=== PATIENT | female | born 1990 | race Caucasian/White ===

== ENCOUNTER 2022-07-23 13:55 | Inpatient (IN) | payer SELFPAY ==
[2022-07-23 13:55] VITALS: BP 157/105; PULSE 79; RESP 16; TEMP 36.3; O2SAT 99; BMI 27.4
--- NOTE | 2022-07-23 14:23 | ED.RN ---
contract for med detox program went over with pt and signed and agreeable to everything and no questions voiced. ua and labs completed. last drink was tall boy this am at 0900.
[2022-07-23 14:36] VITALS: BP 132/97; PULSE 72; RESP 23; TEMP 36.7; O2SAT 100
--- NOTE | 2022-07-23 14:58 | EDS_ITS ---
HPI History of Present Illness Chief Complaint: Substance Abuse Informant: patient Onset/Context/Timing Onset: Today Context: Gradual Onset Timing: Continuous Quality: Shaky Location: Generalized Worsened by: Nothing Relieved by: Nothing Associated Symptoms Associated Symptoms: Positive for tremor, palpatations and no; Negative for vomiting*, diarrhea*, fever*, rash*, seizure, change in mental status, suicidal ideation or homicidal ideation Narrative Narrative: Patient presents requesting detox from alcohol and benzodiazepines. Patient states that she normally drinks 1/5 of liquor per day. Patient states that she has been drinking 1-2 beers over the past few days instead of the liquor. Patient states that her doctor had prescribed her Ativan to help through withdrawals. Patient states she ran out of the Ativan and has not had any in the last few days. Patient states she also feels like she is going through benzodiazepine withdrawal. Patient admits to some tremors and heart palpitations. Patient denies any chance of . Patient denies any suicidal homicidal ideations. PFSH PFSH Medical History Anemia ETOH abuse Home Medications lorazepam 1 mg tablet (Ativan) 1 mg PO TID PRN Anxiety 07/23/22 [History Last Taken Unknown] Allergy/AdvReac Type Severity Reaction Status Date / Time codeine Allergy Hives Verified 07/23/22 13:58 duloxetine [From Cymbalta] Allergy Hives Verified 07/23/22 13:58 Penicillins Allergy Hives Verified 07/23/22 13:58 Sulfa (Sulfonamide Allergy Hives Verified 07/23/22 13:58 Antibiotics) Surgical History (Updated 07/23/22 @ 15:[address] Ton Moore DO) Hx of laparoscopy Hx of tubal ligation Social History Smoking Status: Current every day smoker tobacco type: cigarettes ROS ROS ED Constitutional Constitutional ED: Denies chills or fever(s) Eyes Eyes: Denies blurry vision or change in vision ENT ENT ED: Reports rhinorrhea; Denies sore throat Cardiovascular Cardiovascular: Denies chest pain or palpitations Respiratory/Chest Respiratory/Chest: Reports dyspnea; Denies cough Gastrointestinal Gastrointestinal: Reports nausea; Denies vomiting Genitourinary Genitourinary ED: Denies dysuria or hematuria Musculoskeletal Musculoskeletal: Denies back pain or neck pain Integumentary Denies abscess or rash Neurologic Neurologic: Reports headache(s); Denies weakness Allergic/Immunologic Allergic/Immunologic ED: Denies mouth swelling or urticaria EXAM Physical Exam Const Vital Signs: 07/23/22 13:55 07/23/22 14:36 Temperature 97.4 F L 98.1 F Temperature Source Temporal Oral Pulse Rate 79 72 Respiratory Rate 16 23 H Blood Pressure 157/105 H 132/97 H Blood Pressure Mean 122 108 Blood Pressure Source Monitor Blood Pressure Position Semi-Fowlers Blood Pressure Location Right Arm Pulse Ox 99 100 Oxygen Delivery Method Room Air Room Air Positive well nourished and well developed General Appearance ED: well developed HEENT Reports moist mucous membranes Neck supple and no JVD Resp normal respiratory effort and clear to auscultation bilaterally Cardio regular rate, regular rhythm and no murmurs GI normal to inspection, nondistended, normoactive bowel sounds and non-tender Palpation: soft Extremity normal to inspection General Extremety ED: Negative for edema or tenderness General Extremity: Negative for edema Neuro oriented x3, CN's II-XII intact bilaterally and no sensory deficits noted Sensorium / Orientation: alert Motor Exam: strength 5/5 throughout Psych mental status grossly normal Skin no rashes or lesions noted MDM MDM MDM Narrative Medical decision making narrative: Hep-Lock IV was established. Basic labs were obtained and are pending. Case was discussed with the hospitalist. He will admit the patient to his service. Patient understood and was agreeable with the plan. All questions were answered. Lab Data Labs: Laboratory Results - last 24 hr 07/23/22 14:25 WBC 3.0 L RBC 4.93 Hgb 13.7 Hct 41.1 MCV 83.4 MCH 27.8 MCHC 33.3 RDW Std Deviation 47.3 H RDW Coeff of Yamilet 16.6 H Plt Count 160 MPV 9.5 Immature Gran % (Auto) 0.700 Neut % (Auto) 22.4 L Lymph % (Auto) 63.5 H [place] % (Auto) 12.8 H Eos % (Auto) 0.3 Baso % (Auto) 0.3 Absolute Neuts (auto) 0.7 L Absolute Lymphs (auto) 1.88 Nucleated RBC % 0 Discharge Plan Dx/Rx/DC Orders Clinical Impression: Alcohol withdrawal, Benzodiazepine withdrawal Disposition Disposition: [facility]
[2022-07-23 15:22] LABS: Absolute Lymphocyte Count 1.88 X10^3/uL (0.83-4.51); Absolute Neutrophil Count 0.7 X10^3/uL (2.0-7.7); Basophil# 0.01 X10^3/uL; Basophil% 0.3 % (0-1); Eosinophil# 0.01 X10^3/uL; Eosinophils% 0.3 % (0-5); Hematocrit 41.1 % (37-47); Hemoglobin 13.7 g/dL (12.0-15.0); Lymphocyte # 1.88 X10^3/ul (0.83-4.51); Lymphocyte % 63.5 % (19-41); Mean Corp Hgb Conc 33.3 g/dL (32-36); Mean Corpuscular Hgb 27.8 pg (27.0-32.0); Mean Corpuscular Volume 83.4 fL (81-99); Mean Platelet Vol. 9.5 fl (6.2-12.0); Monocyte# 0.38 X10^3/uL; Monocyte% 12.8 % (0-10); NRBC Flagged by Analyzer 0 % (0-5); Neutrophil # 0.66 X10^3/uL (2.7-7.7); Neutrophil % 22.4 % (47-70); POSITIVE DIFFERENTIAL YES; Platelet Count 160 K/mm3 (150-450); RBC Distribution Width CV 16.6 % (11.6-14.6); RBC Distribution Width SD 47.3 fl (35.1-43.9); Red Blood Count 4.93 M/mm3 (4.2-5.4)
[2022-07-23 15:35] LABS: Differential Indicated SCAN CRITERIA MET
[2022-07-23 15:37] VITALS: BP 132/97; PULSE 72; RESP 23; TEMP 36.7; O2SAT 100
[2022-07-23 15:40] LABS: Internal QC Validated? YES +Cl - CLEAR BKGD; Pregnancy, Serum, hCG Quali. NEGATIVE Negative
[2022-07-23 15:45] LABS: ALB/GLOB Ratio 1.1 RATIO (0.9-2.4); AST(SGOT) 17 U/L (15-37); Alanine Aminotransfer ALT/SGPT 36 U/L (13-56); Albumin, Serum 3.3 g/dL (3.2-5.0); Alkaline Phosphatase 62 U/L (45-117); Anion Gap 7 (5-15); BUN 6 mg/dL (7-18); BUN/Creat Ratio 8.8 RATIO (10-20); Calcium,Total 8.6 mg/dL (8.5-10.1); Chloride 107 mmol/L (98-107); Creatinine, Serum 0.68 mg/dL (0.55-1.02); EST Glomerular Filtration Rate 105 mL/min (>60); Est Glom Filt Rate - Afr Amer 127 mL/min (>60); Estimated Creatinine Clearance 98.25 ml/min; Globulin 3.1 g/dL (2.2-4.2); Glucose 86 mg/dL (74-106); Lipase 80 U/L (73-393); Protein, Total 6.4 g/dL (6.4-8.2); Sodium Level 142 mmol/L (136-145)
[2022-07-23 15:50] LABS: Anisocytosis RARE; Platelet Estimate ADEQUATE (ADEQ); Red Cell Morphology N CHROM NORMAL (NORM C&C)
--- NOTE | 2022-07-23 15:55 | HP.PCM.HOS_ITS ---
HPI - General General Date of Service: 07/23/22 Chief Complaint: Alcohol and benzodiazepine withdrawal HPI Narrative BETH MACEDO, is a 31 F who presents seeking treatment for alcohol benzodiazepine withdrawal. Patient was drinking 1/5 of bourbon daily and until about a week ago. Then over this past week, she is only had 2 drinks of alcohol, last being this morning. She is also been receiving benzodiazepines. Patient has been taking benzodiazepines 3 times a day and did recently have a prescription filled to help her with her alcohol withdrawal. Patient ran out of her lorazepam today and feels tremulous and anxious. Similar to when she has been through withdrawal before. [facility] Medical History Anemia ETOH abuse Home Medications lorazepam 1 mg tablet (Ativan) 1 mg PO TID PRN Anxiety 07/23/22 [History Last Taken Unknown] Allergy/AdvReac Type Severity Reaction Status Date / Time codeine Allergy Hives Verified 07/23/22 13:58 duloxetine [From Cymbalta] Allergy Hives Verified 07/23/22 13:58 Penicillins Allergy Hives Verified 07/23/22 13:58 Sulfa (Sulfonamide Allergy Hives Verified 07/23/22 13:58 Antibiotics) Family History (Updated 07/23/22 @ 15:[address] Ton Welch DO) Other Addiction Surgical History Hx of laparoscopy Hx of tubal ligation Social History (Updated 07/23/22 @ 15:[address] Ton Welch DO) Smoking Status: Current every day smoker tobacco type: cigarettes alcohol intake: current alcohol intake frequency: 3 or more drinks per day substance use type: does not use ROS ROS Narrative All review of systems were negative except as mentioned above in the history of present illness and the other review of systems. Vital Signs Vital Signs Vital Signs: 07/23/22 13:55 07/23/22 14:36 07/23/22 15:37 Temperature 36.3 C L 36.7 C 36.7 C Temperature Source Temporal Oral Oral Pulse Rate 79 72 72 Respiratory Rate 16 23 H 23 H Blood Pressure 157/105 H 132/97 H 132/97 H Blood Pressure Mean 122 108 108 Blood Pressure Source Monitor Blood Pressure Position Semi-Fowlers Blood Pressure Location Right Arm Pulse Ox 99 100 100 Oxygen Delivery Method Room Air Room Air Room Air Weight Weight: 70.307 kg Body Mass Index (BMI) 27.4 Physical Exam Const alert and no apparent distress General Appearance: cooperative Resp normal respiratory effort, no retractions, no use of accessory muscles and clear to auscultation bilaterally Cardio regular rate, regular rhythm, S1 normal heart sound and S2 normal heart sound GI normal to inspection, nondistended, normoactive bowel sounds, soft to palpation, non-tender and non-distended Extremity normal to inspection Results Lab / Micro Data Result Diagrams: 07/23/22 14:25 07/23/22 14:25 Labs: Laboratory Results - last 24 hr 07/23/22 14:25: WBC 3.0 L, RBC 4.93, Hgb 13.7, Hct 41.1, MCV 83.4, MCH 27.8, MCHC 33.3, RDW Std Deviation 47.3 H, RDW Coeff of Yamilet 16.6 H, Plt Count 160, MPV 9.5, Immature Gran % (Auto) 0.700, Neut % (Auto) 22.4 L, Lymph % (Auto) 63.5 H, [place] % (Auto) 12.8 H, Eos % (Auto) 0.3, Baso % (Auto) 0.3, Absolute Neuts (auto) 0.7 L, Absolute Lymphs (auto) 1.88, Nucleated RBC % 0, Differential Comment SEE COMMENT, Platelet Estimate ADEQUATE, RBC Morphology N CHROM, Anisocytosis RARE 07/23/22 14:25: Sodium 142, Potassium 3.0 L, Chloride 107, Carbon Dioxide 28.0, Anion Gap 7, BUN 6 L, Creatinine 0.68, Estim Creat Clear Calc 98.25, Est GFR (MDRD) Af Amer 127, Est GFR (MDRD) Non-Af 105, BUN/Creatinine Ratio 8.8 L, Glucose 86, Calcium 8.6, Total Bilirubin 0.20, AST 17, ALT 36, Alkaline Phosphatase 62, Total Protein 6.4, Albumin 3.3, Globulin 3.1, Albumin/Globulin Ratio 1.1, Lipase 80 07/23/22 14:25: Ethyl Alcohol 39.0 07/23/22 14:25: Serum , Qual NEGATIVE Assessment & Plan Assessment/Plan (1) Benzodiazepine withdrawal: PLAN: Patient is not taking benzodiazepines for a long period of time. I reviewed her OARRS and she received lorazepam on the fifth and ninth of this month. She has run out. She was taking it before. Patient has only had 2 drinks of alcohol over the past week so do not feel that she is going through acute alcohol withdrawal at this time. We will treat her with a lorazepam taper. Patient may require gabapentin upon discharge to help her with her continued benzodiazepine withdrawal. (2) Alcohol withdrawal: PLAN: Less likely an issue though her symptoms may have been medicated by the benzodiazepines that she was taking. She has had a couple drinks during this time so this has not been completely ruled out but seems less likely compared to the benzodiazepine withdrawal. PLAN: Plan Chronic conditions: * Anemia. Hemoglobin stable at 13.7. VTE prophylaxis: Low risk and not indicated. Charges/Coding Visit Charges Inpatient E&M: 83909 Init Hosp L2
--- NOTE | 2022-07-23 16:08 | CM.ED ---
NEMESIO Note Referral Source: Case Find Referral Reason: DARIUS HERR met with patient. She is in the ED for detox from benzo, prescribed Ativan, and alcohol. Patient reports that has cut back alot this week and only had 2/3 drinks this week but previously was drinking a 1/5th . Patient said that she is aware of the rules and signed the contract for the detox program. Patient voiced no concerns or issues regarding ramp program. NEMESIO called Kevin, addiction therapist, and left voice mail for her regarding patient's admission to the [facility] program. Plan: DARIUS LANCASTER
[2022-07-23 17:00] VITALS: BP 131/78; PULSE 66; RESP 16; TEMP 36.7; O2SAT 98
[2022-07-23 17:05] VITALS: BMI 26.5
[2022-07-23 17:14] VITALS: BP 131/78; PULSE 66; RESP 18; TEMP 36.6; O2SAT 98
[2022-07-23] MEDS: LORazepam 1 MG Tablet 2 MG PO ×2 (17:24→21:58)
[2022-07-23 19:38] VITALS: BP 125/88; PULSE 71; RESP 18; TEMP 36.6; O2SAT 99
[2022-07-24] VITALS (7 sets, daily range): BP systolic 117–155; BP diastolic 76–106; PULSE 62–84; RESP 15–18; TEMP 36.3–37.4; O2SAT 97–100
[2022-07-24] MEDS: LORazepam 1 MG Tablet 2 MG PO ×3 (00:46→09:24)
[2022-07-24 00:59] LABS: Mucous, Urine 0 SEEN /hpf (<or=2+); Red Blood Cells-Urine 0 SEEN /hpf (0-5); White Blood Cells 0 SEEN /hpf (0-5)
[2022-07-24 01:00] LABS: Color, Urine Yellow (Yellow); Glucose, Dipstick Normal (Normal); Ketone-Dipstick Negative (Negative); Leukocyte Esterase-Dipstick Negative /ul (Negative); Nitrite-Dipstick Negative (Negative); Occult Blood-Urine Negative /ul (Negative); Protein-Dipstick Negative (Negative); Urine Bilirubin Dipstick Negative (Negative); Urine Clarity Clear (Clear); Urine Urobilinogen Normal (Normal)
[2022-07-24 01:10] LABS: Bacteria RARE /hpf (None Seen); Squamous Epithelial Cells - UA 0-5 SEEN /hpf (5-10)
[2022-07-24 01:11] LABS: Amphetamine Urine VISTA NEGATIVE (<1000 ng/mL); Barbiturate Urine VISTA POSITIVE (< 200 ng/mL); Benzodiazepine Urine VISTA NEGATIVE (< 200 ng/mL); Cocaine Urine VISTA NEGATIVE (< 300 ng/mL); Ecstacy Urine VISTA NEGATIVE (< 500 ng/mL); Methadone Urine VISTA NEGATIVE (< 300 ng/mL); PCP Urine VISTA NEGATIVE (< 25 ng/mL); THC Urine VISTA NEGATIVE (< 50 ng/mL); Vista UDS pH Range 7
[2022-07-24] MEDS: Thiamine Hydrochloride 100 MG Tablet PO (09:24)
[2022-07-24] MEDS: Folic Acid 1 MG Tablet PO (09:24)
--- NOTE | 2022-07-24 13:54 | PN.HOSP_ITS ---
Subjective Subjective Patient was seen and examined today, I talked extensively with addiction social media specialist, it appears that the patient has been getting prescriptions for Ativan to help her with alcohol cessation, patient states that this examiner that she does not drink on a daily basis now, she was told to come here by her counseling center for evaluation for admission. Patient is homeless, she does not have anybody to live with presently, a COVID-19 antigen test was performed because it was recommended by addiction social media specialist because the patient had severe cough, the COVID-19 antigen test was positive. It appears therefore that the patient cannot be placed in a homeless senior care or any type of a detox program. Patient is not requiring any oxygen, she does not need treatment for COVID. I have decided at this time to take the patient off her Ativan taper and place her on Ativan 1 mg 3 times daily, she is not a candidate for the ramp program presently. It appears that the patient will be here for a few days until arrangements can be made for her to go to a living facility. Objective Data Objective Data Vital Signs: Vital Signs Temp Pulse Resp BP Pulse Ox O2 Del Method 99.3 F H 84 16 117/80 99 Room Air 07/24/22 09:21 07/24/22 09:21 07/24/22 09:21 07/24/22 09:21 07/24/22 09:21 07/24/22 09:21 Oxygen Delivery Method Room Air Weight: 68.039 kg Body Mass Index (BMI) 26.5 Intake & Output: Intake and Output for Last 24 Hours 07/22/22 07/23/22 07/24/22 23:59 23:59 23:59 Intake Total 800 / 800 Balance 800 / 800 Lab / Micro Data Result Diagrams: 07/23/22 14:25 07/23/22 14:25 Labs: Laboratory Results - last 24 hr 07/23/22 14:25: WBC 3.0 L, RBC 4.93, Hgb 13.7, Hct 41.1, MCV 83.4, MCH 27.8, MCHC 33.3, RDW Std Deviation 47.3 H, RDW Coeff of Yamilet 16.6 H, Plt Count 160, MPV 9.5, Immature Gran % (Auto) 0.700, Neut % (Auto) 22.4 L, Lymph % (Auto) 63.5 H, [place] % (Auto) 12.8 H, Eos % (Auto) 0.3, Baso % (Auto) 0.3, Absolute Neuts (auto) 0.7 L, Absolute Lymphs (auto) 1.88, Nucleated RBC % 0, Differential Comment SEE COMMENT, Platelet Estimate ADEQUATE, RBC Morphology N CHROM, Anisocytosis RARE 07/23/22 14:25: Sodium 142, Potassium 3.0 L, Chloride 107, Carbon Dioxide 28.0, Anion Gap 7, BUN 6 L, Creatinine 0.68, Estim Creat Clear Calc 98.25, Est GFR (MDRD) Af Amer 127, Est GFR (MDRD) Non-Af 105, BUN/Creatinine Ratio 8.8 L, Glucose 86, Calcium 8.6, Total Bilirubin 0.20, AST 17, ALT 36, Alkaline Phosphatase 62, Total Protein 6.4, Albumin 3.3, Globulin 3.1, Albumin/Globulin Ratio 1.1, Lipase 80 07/23/22 14:25: Ethyl Alcohol 39.0 07/23/22 14:25: Serum , Qual NEGATIVE 07/24/22 00:50: Urine Color Yellow, Urine Clarity Clear, Urine pH 7.0, Ur Specific [place] 1.010, Urine Protein Negative, Urine Glucose (UA) Normal, Urine Ketones Negative, Urine Occult Blood Negative, Urine Nitrite Negative, Urine Bilirubin Negative, Urine Urobilinogen Normal, Ur Leukocyte Esterase Negative, Urine RBC 0 SEEN, Urine WBC 0 SEEN, Ur Squamous Epith Cells 0-5 SEEN, Urine Bacteria RARE, Urine Mucus 0 SEEN 07/24/22 00:50: Urine Opiates Screen NEGATIVE, Urine Methadone Screen NEGATIVE, Ur Barbiturates Screen POSITIVE H, Ur Phencyclidine Scrn NEGATIVE, Ur Amphetamines Screen NEGATIVE, MDMA (Ecstasy) Screen NEGATIVE, U Benzodiazepines Scrn NEGATIVE, Urine Cocaine Screen NEGATIVE, U Cannabinoids Screen NEGATIVE, Ur Drug Screen Comment Micro: Microbiology 07/24/22 11:45 Nasal Secretion SARS-CoV-2 Antigen (Rapid) - Final SARS-CoV-2 (COVID 19) Physical Exam Const alert, oriented x3, no apparent distress and healthy appearing General Appearance: cooperative, well kempt and well developed Orientation / Consciousness: awake, oriented to person, oriented to place and oriented to time HEENT normocephalic and moist oral mucous membranes Eyes PERRL, EOMs intact bilaterally and conjunctivae normal Neck supple, no JVD, thyroid normal and no carotid bruits General: trachea midline Resp normal respiratory effort, no retractions and no use of accessory muscles Auscultation: rhonchi throughout; Negative for rales or wheezes Cardio regular rate, regular rhythm, S1 normal heart sound, S2 normal heart sound, no murmurs, no rub and no gallops GI normal to inspection, nondistended, normoactive bowel sounds, soft to palpation, non-tender and non-distended Extremity no clubbing, cyanosis or edema Skin no rashes or lesions noted General Skin Exam: no breakdown Neuro oriented x3, CN's II-XII intact bilaterally, no focal motor deficits and no sensory deficits noted Sensorium / Orientation: awake, alert, oriented to person, oriented to place and oriented to time Speech: speech normal Psych affect normal Assessment & Plan Assessment/Plan (1) Substance abuse: (2) Unsheltered homelessness: PLAN: Plan 1. Substance abuse-chronic in nature, patient does not want to go into an inpatient detox program at this time, patient is not actively undergoing alcohol withdrawal at the present time, according to her OARRS report, she has been intermittently receiving prescriptions for benzodiazepines over the last few weeks. I have elected to keep her on Ativan 1 mg 3 times daily for now. #2 COVID-19 infection-due to the patient's expiratory rhonchi, I decided to place her on a Proventil inhaler,'s patient smokes 1 and half packs of cigarettes per day. #3 unsheltered homelessness-this creates a problem for the patient, getting her into a homeless senior care will be unlikely due to her COVID-19 positivity. She will need quarantine for 5 days unless she becomes hypoxic. Charges/Coding Visit Charges Inpatient E&M: 03531 Subs Hosp L2
--- NOTE | 2022-07-24 15:13 | CASEMGMT ---
Social Work Pt came in to be part of [facility], however does not qualify for the program. As per Helen with [facility], pt was kicked out of her current living situation. Pt told Helen she had another place to stay however. Dr. Champion then went in to see pt who told him she does not have any place else to stay. Pt also has now tested positive for COVID. SW called [facility] in [place], they do not take people on the weekends. SW called [facility]([phone]), they are full. SW called [facility]([phone]), got a voicemail that they do not answer the phone after 2pm. SW called [facility]([phone]), the number does not work. SW called [facility] in [place]([phone]), it went to voicemail stating that they will be back on Tuesday. SW will follow up if needed if pt still needs a place to stay Tuesday. ADALGISA Dejesus
[2022-07-24] MEDS: Potassium Chloride Oral Tablet 20 MEQ 40 MEQ PO (15:22)
[2022-07-24] MEDS: LORazepam 1 MG Tablet PO ×2 (15:22→22:00)
[2022-07-24] MEDS: hydrOXYzine PAM 25 MG Capsule 50 MG PO (19:38)
[2022-07-24] MEDS: traZODone 100 MG Tablet PO (19:38)
[2022-07-24] MEDS: Albuterol 2.5 MG/3 ML VIAL.NEB. INHALATION (19:39)
[2022-07-24] MEDS: Ibuprofen 600 MG Tablet PO (19:45)
[2022-07-24] MEDS: Ondansetron 8 MG Tablet PO (19:45)
[2022-07-25 02:44] VITALS: BP 114/70; PULSE 73; RESP 16; TEMP 36.5; O2SAT 98
[2022-07-25] MEDS: hydrOXYzine PAM 25 MG Capsule 50 MG PO ×3 (02:54→20:16)
[2022-07-25] MEDS: LORazepam 1 MG Tablet PO ×3 (05:49→22:19)
[2022-07-25 08:00] VITALS: BP 134/79; PULSE 60; RESP 16; TEMP 36; O2SAT 98
--- NOTE | 2022-07-25 10:50 | PCM.PN.HOSP ---
Subjective Subjective Patient was seen and examined today, she is tolerating a reduced dose of Ativan well, she has no complaints of any nervousness or anxiety. Patient is still coughing but overall she states she is feeling better. Objective Data Objective Data Vital Signs: Vital Signs Temp Pulse Resp BP Pulse Ox O2 Del Method 97.7 F L 73 16 114/70 98 Room Air 07/25/22 02:44 07/25/22 02:44 07/25/22 02:44 07/25/22 02:44 07/25/22 02:44 07/25/22 02:44 Oxygen Delivery Method Room Air Weight: 68.039 kg Body Mass Index (BMI) 26.5 Intake & Output: Intake and Output for Last 24 Hours 07/23/22 07/24/22 07/25/22 23:59 23:59 23:59 Intake Total 1750 / 1750 Balance 1750 / 1750 Lab / Micro Data Result Diagrams: 07/23/22 14:25 07/23/22 14:25 Micro: Microbiology 07/24/22 11:45 Nasal Secretion SARS-CoV-2 Antigen (Rapid) - Final SARS-CoV-2 (COVID 19) Physical Exam Const alert, oriented x3, no apparent distress and healthy appearing General Appearance: cooperative, well kempt and well developed Orientation / Consciousness: awake, oriented to person, oriented to place and oriented to time HEENT normocephalic and moist oral mucous membranes Eyes PERRL, EOMs intact bilaterally and conjunctivae normal Neck supple, no JVD, thyroid normal and no carotid bruits General: trachea midline Resp normal respiratory effort and clear to auscultation bilaterally Auscultation: Negative for rales, rhonchi or wheezes Cardio regular rate, regular rhythm, no murmurs, no rub and no gallops GI normal to inspection, nondistended, normoactive bowel sounds, soft to palpation, non-tender and non-distended Extremity no clubbing, cyanosis or edema Skin no rashes or lesions noted General Skin Exam: no breakdown Neuro oriented x3, CN's II-XII intact bilaterally, no focal motor deficits and no sensory deficits noted Sensorium / Orientation: awake and alert Speech: speech normal Psych affect normal Assessment & Plan Assessment/Plan (1) Substance abuse: (2) Unsheltered homelessness: PLAN: Plan 1. Substance abuse-chronic in nature, patient does not want to go into an inpatient detox program at this time, patient is not actively undergoing alcohol withdrawal at the present time, according to her OARRS report, she has been intermittently receiving prescriptions for benzodiazepines over the last few weeks. I have elected to keep her on Ativan 1 mg 3 times daily for now. Patient states that she has been told that arrangements are being made for the patient to go to a hotel to stay. Patient will not be able to go to a homeless group home at the present time due to her COVID-19 positivity. #2 COVID-19 infection-patient is symptomatic with cough, she is not short of breath, she is not having any expiratory rhonchi today, I have decided to continue with metered-dose inhaler. #3 unsheltered homelessness-this creates a problem for the patient, getting her into a homeless group home will be unlikely due to her COVID-19 positivity. She will need quarantine for total of 5 days unless she becomes hypoxic. Charges/Coding Visit Charges Inpatient E&M: 90664 Subs Hosp L2
[2022-07-25] MEDS: Folic Acid 1 MG Tablet PO (12:13)
[2022-07-25] MEDS: Thiamine Hydrochloride 100 MG Tablet PO (12:13)
[2022-07-25 12:23] VITALS: O2SAT 98
[2022-07-25 14:00] VITALS: BP 131/87; PULSE 60; RESP 16; TEMP 36; O2SAT 99
[2022-07-25] MEDS: guaiFENesin Dm 10 ML UDC PO (17:45)
[2022-07-25 20:00] VITALS: BP 141/89; PULSE 66; RESP 16; TEMP 36.8; O2SAT 98
[2022-07-25] MEDS: traZODone 100 MG Tablet PO (20:12)
[2022-07-26] MEDS: LORazepam 1 MG Tablet PO (05:32)
--- NOTE | 2022-07-26 07:15 | PCM.PN.HOSP ---
Subjective Subjective DOS: 07/26/2022 CC: Follow-up benzodiazepine detox Reports doing better today, minimal dry cough has been present for several weeks, chest pain when she gets anxious but none at this time, no changes in her breathing. Not feeling overly shaky. Willing to go down on the Ativan, would like to leave but after discussing risks of withdrawal without decreased Ativan dose as she would not be discharged with that she was agreeable to stay 1 more day Objective Data Objective Data Vital Signs: Vital Signs Temp Pulse Resp BP Pulse Ox O2 Del Method 98.3 F 66 16 141/89 H 98 Room Air 07/25/22 20:00 07/25/22 20:00 07/25/22 20:00 07/25/22 20:00 07/25/22 20:00 07/25/22 22:00 Oxygen Delivery Method Room Air Weight: 68.039 kg Body Mass Index (BMI) 26.5 Intake & Output: Intake and Output for Last 24 Hours 07/24/22 07/25/22 07/26/22 23:59 23:59 23:59 Intake Total 1750 / 1750 Balance 1750 / 1750 Lab / Micro Data Result Diagrams: 07/23/22 14:25 07/23/22 14:25 Micro: Microbiology 07/24/22 11:45 Nasal Secretion SARS-CoV-2 Antigen (Rapid) - Final SARS-CoV-2 (COVID 19) Physical Exam Const alert and no apparent distress Constitutional Narrative: Oriented HEENT normocephalic and head/scalp atraumatic Eyes Eyes Narrative: EOM grossly intact, anicteric Neck supple Resp normal respiratory effort Cardio Cardio Narrative: No overt JVD appreciated GI non-distended Extremity Extremity Narrative: Moving all extremities Neuro Neuro Narrative: No overt focal deficits appreciated Psych Psych Narrative: Cooperative Assessment & Plan Assessment/Plan (1) Substance abuse: (2) Unsheltered homelessness: PLAN: Plan 31-year-old female presented 07/23 for alcohol and benzodiazepine withdrawal. Was drinking 1/5 of bourbon until 1 week ago then had cut down to 2 drinks of alcohol the week prior to admission with the last being the morning of admission, had also been receiving benzodiazepines roughly 3 times a day and recently had a prescription filled to help with her alcohol withdrawal. Had ran out of lorazepam on 07/23 and was tremulous and anxious. #Benzodiazepine and alcohol use disorder, withdrawal Presented 07/23 for detox On lorazepam taper Does not want inpatient detox Expressed interest in leaving today with Ativan prescription Discussed that she will not be discharged with an Ativan prescription and discussed risks and benefits of being discharged today, willing to go down to 0.5 of Ativan 3 times a day and discharge tomorrow if she tolerates it with a prescription for Vistaril. #COVID-19 infection Cough but not short of breath and not hypoxic Continued metered-dose inhaler #Homelessness Will likely be difficult to go to homeless longterm given COVID-19 positivity and will need quarantine for 5 days total and was becoming hypoxic Possibility of going to hotel upon discharge Charges/Coding Visit Charges Inpatient E&M: 42828 Subs Hosp L2
[2022-07-26 08:31] VITALS: BP 122/84; PULSE 61; RESP 18; TEMP 36.3; O2SAT 100
[2022-07-26] MEDS: Folic Acid 1 MG Tablet PO (08:40)
[2022-07-26] MEDS: Thiamine Hydrochloride 100 MG Tablet PO (08:40)
[2022-07-26] MEDS: hydrOXYzine PAM 25 MG Capsule 50 MG PO (08:48)
--- NOTE | 2022-07-26 11:17 | CASEMGMT ---
Social Work SW spoke to pt via phone due to Covid DX. Introduced self and role at hospital. Attempted to discuss discharge plan. Pt stated plan now is to get hotel for a week and then go to retirement once over Covid. Pt reports I have a job. I just need to be somewhere close to my job until i can get my first check. SW asked if pt needed assistance finding retirement and pt declined stated did not need this SW help at this time and has list of shelters from weekend SW. SW encouraged pt to reach out with any further needs/concerns. Pt voiced understanding. JEAN Barnett
[2022-07-26] MEDS: LORazepam 0.5 MG Tablet PO ×2 (14:16→21:52)
[2022-07-26 14:17] VITALS: BP 148/98; PULSE 55; RESP 16; TEMP 36.2; O2SAT 100
[2022-07-26] MEDS: Senna/Docusate Sodium 1 Tablet 2 TABLET PO ×2 (14:57→21:58)
[2022-07-26 20:00] VITALS: BP 137/83; PULSE 66; RESP 18; TEMP 36.2; O2SAT 100
[2022-07-26 21:46] VITALS: BP 137/83; PULSE 66; RESP 18; TEMP 36.2; O2SAT 100
[2022-07-26] MEDS: traZODone 100 MG Tablet PO (21:52)
[2022-07-27 05:05] LABS: Absolute Lymphocyte Count 2.53 X10^3/uL (0.83-4.51); Absolute Neutrophil Count 1.5 X10^3/uL (2.0-7.7); Basophil# 0.01 X10^3/uL; Basophil% 0.2 % (0-1); Eosinophil# 0.03 X10^3/uL; Eosinophils% 0.6 % (0-5); Hemoglobin 14.8 g/dL (12.0-15.0); Lymphocyte # 2.53 X10^3/ul (0.83-4.51); Lymphocyte % 53.5 % (19-41); Mean Corp Hgb Conc 32.9 g/dL (32-36); Mean Corpuscular Hgb 27.8 pg (27.0-32.0); Mean Corpuscular Volume 84.6 fL (81-99); Mean Platelet Vol. 9.2 fl (6.2-12.0); Monocyte# 0.63 X10^3/uL; Monocyte% 13.3 % (0-10); NRBC Flagged by Analyzer 0 % (0-5); Neutrophil # 1.52 X10^3/uL (2.7-7.7); Neutrophil % 32.2 % (47-70); Platelet Count 236 K/mm3 (150-450); RBC Distribution Width CV 16.1 % (11.6-14.6); RBC Distribution Width SD 47.8 fl (35.1-43.9); Red Blood Count 5.32 M/mm3 (4.2-5.4); White Blood Count 4.7 K/mm3 (4.4-11.0)
[2022-07-27 05:45] LABS: ALB/GLOB Ratio 0.9 RATIO (0.9-2.4); AST(SGOT) 8 U/L (15-37); Alanine Aminotransfer ALT/SGPT 29 U/L (13-56); Albumin, Serum 3.2 g/dL (3.2-5.0); Alkaline Phosphatase 59 U/L (45-117); Anion Gap 6 (5-15); BUN 9 mg/dL (7-18); BUN/Creat Ratio 11.9 RATIO (10-20); Calcium,Total 8.8 mg/dL (8.5-10.1); Chloride 106 mmol/L (98-107); Creatinine, Serum 0.75 mg/dL (0.55-1.02); EST Glomerular Filtration Rate 94 mL/min (>60); Est Glom Filt Rate - Afr Amer 114 mL/min (>60); Estimated Creatinine Clearance 89.08 ml/min; Globulin 3.4 g/dL (2.2-4.2); Glucose 80 mg/dL (74-106); Potassium 3.9 mmol/L (3.5-5.1); Protein, Total 6.6 g/dL (6.4-8.2); Sodium Level 139 mmol/L (136-145)
[2022-07-27 06:54] VITALS: BP 121/73; PULSE 62; RESP 16; TEMP 36.2; O2SAT 99
[2022-07-27 06:56] VITALS: BP 121/73; PULSE 62; RESP 16; TEMP 36.2; O2SAT 99
[2022-07-27] MEDS: LORazepam 0.5 MG Tablet PO (06:57)
[2022-07-27] MEDS: hydrOXYzine PAM 25 MG Capsule 50 MG PO (07:01)
[2022-07-27 09:09] VITALS: BP 121/78; PULSE 65; RESP 18; TEMP 36.3; O2SAT 99
[2022-07-27] MEDS: Senna/Docusate Sodium 1 Tablet 2 TABLET PO (09:13)
[2022-07-27] MEDS: Folic Acid 1 MG Tablet PO (09:13)
[2022-07-27] MEDS: Thiamine Hydrochloride 100 MG Tablet PO (09:13)
--- NOTE | 2022-07-27 10:48 | DCINST_ITS ---
Discharge Instructions Diet Discharge Diet: No restrictions Activity Discharge Activity: Return to Normal Activity Follow Up Care Test Results: Test results from this visit will be discussed in further detail at your follow- up appointment, if applicable. Discharge Plan Admission Admit Date/Time: 07/23/22 15:50 Primary Reason for Your Visit: Benzodiazepine detox Attending Provider: Sita Lainez Primary Care Provider: Care Physician,No Primary Consulting Providers: Ton Welch ; Albert Champion Instructions Patient Instructions: Addiction: Getting Help, Addiction: Your Treatment Options, Addiction Recovery Counseling Additional Instructions / Restrictions: ? You will be discharged with a short prescription for hydroxyzine upon discharge -Please call your primary care provider's office upon discharge to schedule a hospital follow up within 1 week, if you do not have a primary care physician a list of local physicians can be provided upon discharge -For any concerning signs or symptoms please call 911 or proceed to the nearest emergency department Discharge Orders/Prescriptions Prescriptions: New hydroxyzine pamoate 25 mg Capsule 50 mg PO Q12H PRN PRN (Reason: mild anxiety) 7 Days Qty: 14 0RF Discontinued lorazepam [Ativan] 1 mg Tablet 1 mg PO TID PRN (Reason: Anxiety) Referrals / Follow Up: Care Physician,No Primary [Primary Care Provider] - NOT,DEFINED [Non-Staff] - Disposition Disposition (needs filled in before D/C Order can be placed): Home, Self Care
--- NOTE | 2022-07-27 10:55 | DS.PCM_ITS ---
Providers Date of Admission: 07/23/22 Date of Discharge: 07/27/22 Primary Care Physician: No Primary Care Phys Reason For Visit: BZD WD Diagnosis Discharge Diagnosis (1) Substance abuse: Status: Acute Code(s): F19.10 - Other psychoactive substance abuse, uncomplicated (2) Unsheltered homelessness: Status: Acute Code(s): Z59.02 - Unsheltered homelessness Plan #Benzodiazepine and alcohol use disorder, withdrawal #COVID-19 infection #Homelessness Medications at Discharge Home Medications hydroxyzine pamoate 25 mg capsule 50 mg PO Q12H PRN PRN mild anxiety 7 days #14 caps 07/27/22 Hospital Course Summary of Care Provided Minutes Spent on Discharge: 20 Hospital Course: 31-year-old female presented 07/23 for alcohol and benzodiazepine withdrawal. Was drinking 1/5 of bourbon until 1 week ago then had cut down to 2 drinks of alcohol the week prior to admission with the last being the morning of admission, had also been receiving benzodiazepines roughly 3 times a day and recently had a prescription filled to help with her alcohol withdrawal. Had ran out of lorazepam on 07/23 and was tremulous and anxious. Was not deemed to qu alify for the ramp program. Was started on Ativan which was decreased during admission, did well with this and was discharged on Vistaril. Of note she was incidentally found to have COVID, never hypoxic and did not require treatment for this. Discharged to [facility] in stable condition. On day of discharge she denied chest pain or shortness of breath, overall felt well with no complaints Physical Exam Const alert and no apparent distress Constitutional Narrative: Oriented HEENT normocephalic and head/scalp atraumatic Eyes Eyes Narrative: EOM grossly intact, anicteric Neck supple Resp normal respiratory effort Cardio Cardio Narrative: No overt JVD appreciated GI non-distended Extremity Extremity Narrative: Moving all extremities Neuro Neuro Narrative: No overt focal deficits appreciated Psych Psych Narrative: Cooperative Weight / BMI Weight Weight: 68.039 kg Body Mass Index (BMI) 26.5 ABG / Lab / Microbiology Data Result Diagrams: 07/27/22 04:05 07/27/22 04:05 Laboratory: Laboratory Results - last 24 hr 07/27/22 04:05: WBC 4.7, RBC 5.32, Hgb 14.8, Hct 45.0, MCV 84.6, MCH 27.8, MCHC 32.9, RDW Std Deviation 47.8 H, RDW Coeff of [place] 16.1 H, Plt Count 236, MPV 9.2, Immature Gran % (Auto) 0.200, Neut % (Auto) 32.2 L, Lymph % (Auto) 53.5 H, [place] % (Auto) 13.3 H, Eos % (Auto) 0.6, Baso % (Auto) 0.2, Absolute Neuts (auto) 1.5 L, Absolute Lymphs (auto) 2.53, Nucleated RBC % 0 07/27/22 04:05: Sodium 139, Potassium 3.9, Chloride 106, Carbon Dioxide 27.0, An ion Gap 6, BUN 9, Creatinine 0.75, Estim Creat Clear Calc 89.08, Est GFR (MDRD) Af Amer 114, Est GFR (MDRD) Non-Af 94, BUN/Creatinine Ratio 11.9, Glucose 80, Calcium 8.8, Total Bilirubin 0.20, AST 8 L, ALT 29, Alkaline Phosphatase 59, Total Protein 6.6, Albumin 3.2, Globulin 3.4, Albumin/Globulin Ratio 0.9 Microbiology: Microbiology 07/24/22 11:45 Nasal Secretion SARS-CoV-2 Antigen (Rapid) - Final SARS-CoV-2 (COVID 19) D/C Instructions Discharge Diet: No restrictions Meaningful Use Info Meaningful Use Diagnoses (Choose all that apply): None applicable Discharge Plan Admission Admit Date/Time: 07/23/22 15:50 Primary Reason for Your Visit: Benzodiazepine detox Attending Provider: Sita Lainez Primary Care Provider: Care Physician,No Primary Consulting Providers: Ton Welch ; Albert Champion Instructions Patient Instructions: Addiction: Getting Help, Addiction: Your Treatment Options, Addiction Recovery Counseling Additional Instructions / Restrictions: ? You will be discharged with a short prescription for hydroxyzine upon dischar ge -Please call your primary care provider's office upon discharge to schedule a hospital follow up within 1 week, if you do not have a primary care physician a list of local physicians can be provided upon discharge -For any concerning signs or symptoms please call 911 or proceed to the nearest emergency department Discharge Orders/Prescriptions Prescriptions: New hydroxyzine pamoate 25 mg Capsule 50 mg PO Q12H PRN PRN (Reason: mild anxiety) 7 Days Qty: 14 0RF Discontinued lorazepam [Ativan] 1 mg Tablet 1 mg PO TID PRN (Reason: Anxiety) Referrals / Follow Up: Care Physician,No Primary [Primary Care Provider] - NOT,DEFINED [Non-Staff] - Disposition Disposition (needs filled in before D/C Order can be placed): Home, Self Care Charges/Coding Visit Charges Inpatient E&M: 31856 Disch Hosp
--- NOTE | 2022-07-27 10:59 | PHA.DC.MR ---
Pharmacy Service has performed discharge medication reconciliation for this patient. The patient's discharge medication list was reviewed for discrepancies and discrepancies were resolved. Home Medications hydroxyzine pamoate 25 mg capsule 50 mg PO Q12H PRN PRN mild anxiety 7 days #14 caps 07/27/22
== END 2022-07-27 11:40 | disposition home or self-care (01) | DRG 896 ==
LOC: ED 15:24 → MS3 15:57
PROVIDERS: Emergency Provider Emergency Medicine; Visit Provider Internal Medicine
DX: F19.230 Other psychoactive substance dependence with withdrawal, uncomplicated (principal); U07.1 COVID-19; F10.239 Alcohol dependence with withdrawal, unspecified; F17.210 Nicotine dependence, cigarettes, uncomplicated; Z86.16 Personal history of COVID-19; Z59.02 Unsheltered homelessness; Y90.1 Blood alcohol level of 20-39 mg/100 ml
CPT/HCPCS: 36415; 80053; 80307; 81001; 82077; 83690; 84703; 85025; 87811; 94640; 99251; 99284; G0463